=== PATIENT | female | born 1965 | race African-American/Black ===

== ENCOUNTER 2020-12-18 09:43 | Inpatient (IN) | payer MEDICAID ==
[~2020-12-18] VITALS: Ht 182.9 cm; Wt 49.4 kg
[2020-12-18] MEDS ORDERED: MORPHINE SULFATE 4 MG/ML CPJ (NOT FOR IM USE) IV ONE ×2 (13:00→14:45)
[2020-12-18] MEDS ORDERED: ACETAMINOPHEN 325MG TABLET PO ONE (13:00)
[2020-12-18] MEDS ORDERED: DEXT 5%/0.9% NACL 500 ML IV ONE (13:00)
[2020-12-18 13:30] LABS: BASOPHILS % 0.8 % (0.0-2.0); EOSINOPHILS % 0.5 % (0.0-5.0); HEMATOCRIT. 36.9 % (36.0-48.0); HEMOGLOBIN. 12.3 g/dL (12.0-16.0); LYMPHOCYTES % 9.1 % (20.0-50.0); MEAN CORPUSCULAR HEMOGLOBIN 31.2 pg (28.0-32.0); MEAN CORPUSCULAR VOLUME 93.8 fL (81.0-99.0); MEAN PLATELET VOLUME 7.9 fl (7.4-10.4); MONOCYTES % 4.5 % (2.0-8.0); NEUTROPHILS % 85.1 % (40.0-76.0); PLATELET 343 x1000/uL (130-400); RED BLOOD CELL COUNT 3.94 mill/uL (4.2-5.4); RED CELL DISTRIBUTION WIDTH 14.4 % (11.6-14.6)
[2020-12-18 13:45] LABS: CHLORIDE 100 mEq/L (98-107)
[2020-12-18] MEDS ORDERED: NITROGLYCERIN 0.4MG TABLET SL SL PRN (21:45)
[2020-12-18] MEDS ORDERED: ZOLPIDEM TARTRATE 5MG TABLET PO PRN (21:45)
[2020-12-18 22:00] VITALS: BP 174/111
[2020-12-18] MEDS: HYDROCODONE/ACETAMINOPHEN 5/325MG TABLET PO PRN (22:02)
[2020-12-18 23:14] LABS: BASOPHILS % 0.3 % (0.0-2.0); EOSINOPHILS % 2.1 % (0.0-5.0); HEMATOCRIT. 33.3 % (36.0-48.0); HEMOGLOBIN. 11.2 g/dL (12.0-16.0); LYMPHOCYTES % 11.1 % (20.0-50.0); MEAN CORPUSCULAR HEMOGLOBIN 31.5 pg (28.0-32.0); MEAN CORPUSCULAR VOLUME 93.8 fL (81.0-99.0); MONOCYTES % 6.6 % (2.0-8.0); NEUTROPHILS % 79.9 % (40.0-76.0); PLATELET 328 x1000/uL (130-400); RED BLOOD CELL COUNT 3.55 mill/uL (4.2-5.4); RED CELL DISTRIBUTION WIDTH 14.2 % (11.6-14.6)
[2020-12-18 23:29] LABS: LDL CHOLESTEROL 79 mg/dL (5-100)
[2020-12-18 23:30] LABS: HDL CHOLESTEROL 70 mg/dL (40-59)
[2020-12-18] MEDS ORDERED: PNEUMOCOCCAL 23-VAL P-SAC VAC 0.5 ML IM ONE (23:45)
[2020-12-19 00:38] VITALS: BP 156/111
[2020-12-19] MEDS ORDERED: CLONIDINE 0.1MG TABLET PO PRN (01:15)
[2020-12-19] MEDS: HYDROCODONE/ACETAMINOPHEN 5/325MG TABLET PO PRN ×2 (02:12→09:52)
[2020-12-19 04:00] VITALS: BP 160/107
[2020-12-19 08:20] VITALS: BP 149/114
[2020-12-19] MEDS ORDERED: ASPIRIN 81MG TABLET PO SCH (09:00)
[2020-12-19] MEDS ORDERED: AMLODIPINE 10MG TABLET PO SCH (09:00)
[2020-12-19] MEDS: AMLODIPINE 10MG TABLET PO SCH (09:52)
[2020-12-19] MEDS: METOPROLOL TARTRATE 50MG TABLET PO SCH ×2 (09:52→21:14)
[2020-12-19] MEDS ORDERED: BENZONATATE 100MG CAPSULE PO PRN (12:00)
[2020-12-19 12:20] VITALS: BP 160/88
[2020-12-19] MEDS: AZITHROMYCIN 500 MG TABLET PO SCH (12:36)
[2020-12-19] MEDS: SULFAMETHOXAZOLE/TRIMETHOPRIM 800/160MG TABLET PO SCH (12:37)
[2020-12-19] MEDS: MORPHINE SULFATE 2 MG/ML CPJ (NOT FOR IM USE) IV PRN ×3 (12:39→21:14)
[2020-12-19 16:20] VITALS: BP 134/94
[2020-12-19] MEDS ORDERED: ENOXAPARIN 40MG/0.4ML SYR SUBCUT SCH (17:00)
[2020-12-19 17:49] LABS: PROTHROMBIN TIME 11.2 sec (9.6-11.0)
[2020-12-19 20:00] VITALS: BP 140/94
[2020-12-20] VITALS (17 sets, daily range): BP systolic 101–139; BP diastolic 68–94
[2020-12-20] MEDS: MORPHINE SULFATE 2 MG/ML CPJ (NOT FOR IM USE) IV PRN ×4 (01:41→20:11)
[2020-12-20] MEDS ORDERED: LIDOCAINE HCL 1% 20ML VIAL (Pyxis) INJ ONE (07:19)
[2020-12-20] MEDS ORDERED: SODIUM BICARBONATE 4% (2.4MEQ) 5ML VIAL IV ONE (07:19)
[2020-12-20] MEDS ORDERED: FENTANYL CITRATE/PF 50MCG/ML 2ML VIAL ONE (07:19)
[2020-12-20] MEDS ORDERED: FENTANYL CITRATE/PF 50MCG/ML 2ML VIAL IV SCH (08:30)
[2020-12-20] MEDS: METOPROLOL TARTRATE 50MG TABLET PO SCH ×2 (09:00→20:12)
[2020-12-20] MEDS: SULFAMETHOXAZOLE/TRIMETHOPRIM 800/160MG TABLET PO SCH (09:25)
[2020-12-20] MEDS: AMLODIPINE 10MG TABLET PO SCH (09:25)
[2020-12-20] MEDS: AZITHROMYCIN 500 MG TABLET PO SCH (09:25)
[2020-12-20] MEDS: ENOXAPARIN 30MG/0.3ML SYR SUBCUT SCH (15:30)
[2020-12-21] VITALS (7 sets, daily range): BP systolic 95–124; BP diastolic 60–89
[2020-12-21] MEDS: MORPHINE SULFATE 2 MG/ML CPJ (NOT FOR IM USE) IV PRN ×3 (04:33→20:20)
[2020-12-21] MEDS: METOPROLOL TARTRATE 50MG TABLET PO SCH ×2 (10:04→20:20)
[2020-12-21] MEDS: AMLODIPINE 10MG TABLET PO SCH (10:04)
[2020-12-21] MEDS: SULFAMETHOXAZOLE/TRIMETHOPRIM 800/160MG TABLET PO SCH (10:04)
[2020-12-21] MEDS: AZITHROMYCIN 500 MG TABLET PO SCH (10:04)
[2020-12-21] MEDS: HYDROCODONE/ACETAMINOPHEN 5/325MG TABLET PO PRN (10:14)
[2020-12-21] MEDS: ENOXAPARIN 30MG/0.3ML SYR SUBCUT SCH (14:53)
[2020-12-22 00:34] VITALS: BP 117/81
[2020-12-22] MEDS: MORPHINE SULFATE 2 MG/ML CPJ (NOT FOR IM USE) IV PRN ×2 (00:37→05:13)
[2020-12-22 04:00] VITALS: BP 113/75
[2020-12-22 08:00] VITALS: BP 114/71
[2020-12-22] MEDS: AZITHROMYCIN 500 MG TABLET PO SCH (09:29)
[2020-12-22] MEDS: METOPROLOL TARTRATE 50MG TABLET PO SCH (09:29)
[2020-12-22] MEDS: SULFAMETHOXAZOLE/TRIMETHOPRIM 800/160MG TABLET PO SCH (09:29)
[2020-12-22] MEDS: AMLODIPINE 10MG TABLET PO SCH (09:29)
[2020-12-22 09:30] VITALS: BP 114/71
[2020-12-22] MEDS: HYDROCODONE/ACETAMINOPHEN 5/325MG TABLET PO PRN (09:30)
== END 2020-12-22 10:15 | DRG 197 ==
LOC: ER 10:02 → 5WST 13:15 → ENRESERV 19:10
PROVIDERS: ADMIT Internal Medicine; ATTEND Internal Medicine
PROC: 0WBC3ZX Excision of Mediastinum, Percutaneous Approach, Diagnostic (ICD-10-PCS; principal; 2020-12-20)
DX: I82.C11 Acute embolism and thrombosis of right internal jugular vein (principal); E43 Unspecified severe protein-calorie malnutrition; I31.3 Pericardial effusion (noninflammatory); E87.1 Hypo-osmolality and hyponatremia; C34.90 Malignant neoplasm of unspecified part of unspecified bronchus or lung; I82.210 Acute embolism and thrombosis of superior vena cava; I36.1 Nonrheumatic tricuspid (valve) insufficiency; I77.819 Aortic ectasia, unspecified site; F12.90 Cannabis use, unspecified, uncomplicated; F14.90 Cocaine use, unspecified, uncomplicated; F17.210 Nicotine dependence, cigarettes, uncomplicated; I10 Essential (primary) hypertension; R62.7 Adult failure to thrive; D49.89 Neoplasm of unspecified behavior of other specified sites; R91.8 Other nonspecific abnormal finding of lung field; R06.09 Other forms of dyspnea; I34.0 Nonrheumatic mitral (valve) insufficiency; Z20.822 Contact with and (suspected) exposure to COVID-19; I82.290 Acute embolism and thrombosis of other thoracic veins; M71.20 Synovial cyst of popliteal space [Baker], unspecified knee; Z59.0 Homelessness; Z71.51 Drug abuse counseling and surveillance of drug abuser; Z21 Asymptomatic human immunodeficiency virus [HIV] infection status; Z68.1 Body mass index [BMI] 19.9 or less, adult
CPT/HCPCS: 32408; 36415; 77012; 80048; 80061; 83036; 84484; 85025; 87426; 88172; 88173; 88312; 90732; 93005; 97162; 97164; 99285; A4565; C1893; J1650; J2270; J3010; J3490; J7042